=== PATIENT | male | born 1950 | race African-American/Black ===

== ENCOUNTER 2016-10-22 11:11 | Observation (INO) | payer OTHER ==
[~2016-10-22] VITALS: Ht 167.6 cm; Wt 108.9 kg
[2016-10-22 11:46] LABS: Basophils # (auto) 0 uL; Basophils % (auto) 0.3 % (0.0-2.0); CONDITION Y; Eosinophils # (auto) 0 uL; Eosinophils % (auto) 0.2 % (0.0-7.0); Hematocrit 30.3 % (41.0-53.0); Hemoglobin 10.3 g/dL (13.5-17.5); Lymphocytes # (auto) 1.2 uL; Lymphocytes % (auto) 11.4 % (10.0-50.0); Mean Corpuscular Hemoglobin 27.5 pg (28.0-32.0); Mean Corpuscular Hgb Conc. 33.9 g/dL (32.0-36.0); Mean Corpuscular Volume 81.3 fL (80.0-100.0); Mean Platelet Volume 8.1 fL (7.4-10.4); Monocytes # (auto) 0.9 uL; Monocytes % (auto) 8.9 % (0.0-12.0); Neutrophils # (auto) 8.2 uL; Neutrophils % (auto) 79.2 % (37.0-80.0); Platelet Count (auto) 353 10^3/uL (140-450); White Blood Cell 10.4 10^3/uL (4.4-10.8)
[2016-10-22 12:03] LABS: Chloride 108 mmol/L (98-107); INR 1.11 (0.9-1.15); Partial Thromboplastin Time 31.5 sec (22.64-33.71); Potassium 3.4 mmol/L (3.5-5.1); Prothrombin Time 12.1 sec (9.37-12.3); Sodium 140 mmol/L (136-145)
[2016-10-22 12:08] LABS: Albumin 2.7 g/dL (3.4-5.0); Anion Gap 14 (5-15); Aspartate Aminotransferase 15 U/L (15-37); BUN/Creatinine Ratio 9.9; Blood Urea Nitrogen 13 mg/dL (7-18); Calcium 8.1 mg/dL (8.5-10.1); Carbon Dioxide 18 mmol/L (21-32); GFR African American 71 mL/min; GFR Non-African American 58 mL/min; Glucose 152 mg/dL (74-106); Magnesium 1.8 mg/dL (1.6-2.6)
[2016-10-22 12:13] LABS: Alkaline Phosphatase 65 U/L (45-117); Bilirubin, Total 0.5 mg/dL (0.2-1.0); Total Protein 7.3 g/dL (6.4-8.2)
[2016-10-22 12:16] LABS: B-Type Natriuretic Peptide 152 pg/mL (0-100)
[2016-10-22] MEDS ORDERED: ONDANSETRON HCL 4 MG/2 ML VIAL IV ONE (12:30)
[2016-10-22] MEDS ORDERED: MORPHINE SULF INJ 2 MG/ML SYRINGE 1ML IV ONE (12:30)
[2016-10-22] MEDS ORDERED: cloNIDine HCL 0.1 MG TAB PO ONE (14:15)
[2016-10-22 17:51] VITALS: BP 140/86
== END 2016-10-22 19:22 | disposition home or self-care (01) | DRG 556 ==
LOC: ER 11:16 → OVERFLOW 11:36 → ER 19:22
PROVIDERS: ADMIT Family Medicine; ATTEND Family Medicine
DX: M79.604 Pain in right leg (principal); I11.0 Hypertensive heart disease with heart failure; I50.42 Chronic combined systolic (congestive) and diastolic (congestive) heart failure; R06.02 Shortness of breath; Z83.3 Family history of diabetes mellitus; Z82.49 Family history of ischemic heart disease and other diseases of the circulatory system
CPT/HCPCS: 36415; 71010; 73590; 80053; 83735; 83880; 84443; 84484; 85025; 85610; 85730; 93005; 93971; 96374; 96375; 99285; G0378; J2270; J2405

== ENCOUNTER 2024-01-26 18:01 | Emergency (ER) | payer OTHER ==
[~2024-01-26] VITALS: Ht 167.6 cm; Wt 72.0 kg
--- NOTE | 2024-01-26 18:24 | ED.PDOC ---
HPI (NEURO) HPI Comments 73 y.o male with PMH of HTN, presents to the ED for a chief complaint of dizziness that started earlier today. Patient reports he was sitting when dizziness suddenly presented, lasted for a couple of minutes, subsided and felt much better but spontaneously had another dizzy spell that was worse than the first episode. Patient reports he went to take his blood pressure medication which seemed to help decrease the dizziness. Patient was brought in to the ED by friend via wheelchair. Patient denies any headaches, nausea, vomiting, diarrhea, chest pain, SOB, fever, chills, chest pain. Upon ED arrival, patient's blood pressure read 155/106. Patient states he is compliant with medication. Chief Complaint: Dizziness Time Seen by MD: 18:17 Primary Care Provider: SELAM Davenport Notes: Nurses Notes, Medications, Allergies Information Source: Patient Mode of Arrival: Wheelchair Severity: Moderate Dizziness/Weakness Severity: Unable to do activities Timing: Hours Duration: Since onset Onset: At rest Circumstances: Spontaneous History of: Hypertension Modifying factors: Nothing Associated Signs and Symptoms: None Past Medical History PAST MEDICAL HISTORY: HTN Surgical History: Denies all surgeries Family History Family History: No family hx of DM, No family hx of HTN Social History Smoker: Non-Smoker Alcohol: Rarely Drugs: Denies Drug Use Lives In: Home Constitutional: denies: chills, diaphoresis, fatigue, fever, malaise, sweats, weakness, others EENTM: denies: blurred vision, double vision, ear bleeding, ear discharge, ear drainage, ear pain, ear ringing, eye pain, eye redness, hearing loss, mouth pain, mouth swelling, nasal discharge, nose bleeding, nose congestion, nose pain, photophobia, tearing, throat pain, throat swelling, voice changes, others Respiratory: denies: cough, hemoptysis, orthopnea, SOB at rest, shortness of breath, SOB with excertion, stridor, wheezing, others Cardiovascular: reports: dizzy spells; denies: chest pain, diaphoresis, Dyspnea on exertion, edema, irregular heart beat, left arm pain, lightheadedness, palpitations, PND, syncope, others Gastrointestinal: denies: abdomen distended, abdominal pain, blood streaked bowels, constipated, diarrhea, dysphagia, difficulty swallowing, hematemesis, melena, nausea, poor appetite, poor fluid intake, rectal bleeding, rectal pain, vomiting, others Genitourinary: denies: burning, dysuria, flank pain, frequency, hematuria, incontinence, penile discharge, penile sore, pain, testicle pain, testicle swelling, urgency, others Neurological: reports: dizziness; denies: fainting, headache, left sided numbness, left sided weakness, numbness, paresthesia, pre-existing deficit, right sided numbness, right sided weakness, seizure, speech problems, tingling, tremors, weakness, others Musculoskeletal: denies: back pain, gout, joint pain, joint swelling, muscle pain, muscle stiffness, neck pain, others Integumetry: denies: bruises, change in color, change in hair/nails, dryness, laceration, lesions, lumps, rash, wounds, others Allergic/Immunocompromised: denies: Difficulty Healing, Frequent Infections, Hives, Itching, others Hematologic/Lymphatic: denies: anemia, blood clots, easy bleeding, easy bruising, swollen glands, others Endocrine: denies: excessive hunger, excessive sweating, excessive thirst, excessive urination, flushing, intolerance to cold, intolerance to heat, unexplained weight gain, unexplained weight loss, others Psychiatric: denies: anxiety, bipolar disorder, depression, hopeless, panic disorder, schizophrenia, sleepless, suicidal, others All Other Systems: Reviewed and Negative Physical Exam General Appearance: No Apparent Distress HEENT: Normal ENT Inspection, Pharynx Normal, TMs Normal Neck: Full Range of Motion, Non-Tender, Normal, Normal Inspection Respiratory: Chest Non-Tender, Lungs Clear, No Accessory Muscle Use, No Respiratory Distress, Normal Breath Sounds Cardiovascular: No Edema, No JVD, No Murmur, No Gallop, Normal Peripheral Pulses, Regular Rate/Rhythm Breast Exam: Deferred Gastrointestinal: No Organomegaly, Non Tender, No Pulsatile Mass, Normal Bowel Sounds, Soft Genitalia: Deferred Pelvic: Deferred Rectal: Deferred Extremities: No calf tenderness, Normal capillary refill, Normal inspection, Normal range of motion, Non-tender, No pedal edema Musculoskeletal : Apperance: Normal Neurologic: Alert, fender finisher II-XII nml as Tested, No Motor Deficits, Normal Affect, Normal Mood, No Sensory Deficits Cerebellar Function: Normal Reflexes: Normal Skin: Dry, Normal Color, Warm Lymphatic: No Adenopathy Was a procedure done? Was a procedure done?: No Differential Diagnosis (SZ) Seizure: N/A General Weakness: Dehydration, Electrolyte imbalance, Vertigo: central, Vertigo: peripheral X-Ray, Labs, Meds, VS Vital Signs Date Time Temp Pulse Resp B/P (MAP) Pulse Ox O2 Delivery O2 Flow Rate FiO2 01/26/24 18:21 84 01/26/24 18:13 98.0 72 18 155/106 (122) 97 Lab Test 01/26/24 18:40 01/26/24 18:10 Range/Units White Blood Count 3.6 L 4.4-10.8 10^3/uL Red Blood Count 3.30 L 4.5-5.90 10^6/uL Hemoglobin 9.4 L 13.5-17.5 g/dL Hematocrit 27.8 L 41.0-53.0 % Mean Corpuscular Volume 84.4 80.0-100.0 fL Mean Corpuscular Hemoglobin 28.4 28.0-32.0 pg Mean Corpuscular Hemoglobin Concent 33.6 32.0-36.0 g/dL Red Cell Distribution Width 15.7 H 11.8-14.3 % Platelet Count 305 140-450 10^3/uL Mean Platelet Volume 7.1 6.9-10.8 fL Neutrophils (%) (Auto) 57.2 37.0-80.0 % Lymphocytes (%) (Auto) 30.2 10.0-50.0 % Monocytes (%) (Auto) 9.4 0.0-12.0 % Eosinophils (%) (Auto) 2.8 0.0-7.0 % Basophils (%) (Auto) 0.4 0.0-2.0 % Neutrophils # (Auto) 2.1 1.6-8.6 10 ^3/uL Lymphocytes # (Auto) 1.1 0.4-5.4 10 ^3/uL Monocytes # (Auto) 0.3 0-1.3 10 ^3/uL Eosinophils # (Auto) 0.1 0-0.8 10 ^3/uL Basophils # (Auto) 0 0-0.2 10 ^3/uL Nucleated Red Blood Cells 0.3 % Sodium Level 142 136-145 mmol/L Potassium Level 4.7 3.5-5.1 mmol/L Chloride Level 109 H 98-107 mmol/L Carbon Dioxide Level 26 20-31 mmol/L Anion Gap 7 5-15 Blood Urea Nitrogen 23 9-23 mg/dL Creatinine 1.47 H 0.700-1.30 mg/dL Glomerular Filtration Rate Calc 50 >90 mL/min BUN/Creatinine Ratio 15.6 10.0-20.0 Serum Glucose 85 74-106 mg/dL Calcium Level 9.3 8.7-10.4 mg/dL Troponin I High Sensitivity 9 </=54 ng/L POC Glucose 77 70-106 mg/dl CT scan of the head is negative The CBC shows anemia with a hemoglobin of 9.4 and hematocrit 27.8 The chemistry panel shows a BUN of 23 and a creatinine of 1.47 At this time, an IV Hep-Lock has been established The patient's blood pressure was elevated and was given clonidine The patient's blood pressure is now 138/58 He states that he feels much better at this time The patient will follow up with the primary care doctor The patient will return to the emergency department's the condition worsens. Images Reviewed?: Images reviewed and evaluated by me Time of 1ST Reevaluation: 18:20 Reevaluation 1ST: Unchanged Patient Education/Counseling: Diagnosis, Treatment, Prognosis, Need For Follow Up Family Education/Counseling: No Family Present Departure 1 Departure Time of Disposition: 20:33 Impression: Primary Impression: Hypertensive urgency Disposition: 01 HOME / SELF CARE / HOMELESS Condition: Fair Discharged With: Self Critical Care Note Critical Care Time?: No Stability Stability form required: No I personally scribed for VENITA FELIX MD ([facility]) on 01/26/24 at 18:24. Electronically submitted by Gege Elizabeth ([employer]). I personally scribed for VENITA FELIX MD ([facility]) on 01/26/24 at 18:25. Electronically submitted by Gege Elizabeth ([facility] VENITA FELIX MD Jan 26, 2024 18:24
[2024-01-26 19:01] LABS: Chloride 109 mmol/L (98-107); Potassium 4.7 mmol/L (3.5-5.1); Sodium 142 mmol/L (136-145)
[2024-01-26 19:02] LABS: Anion Gap 7 (5-15); Calcium 9.3 mg/dL (8.7-10.4); Carbon Dioxide 26 mmol/L (20-31)
[2024-01-26 19:03] LABS: Basophils # (auto) 0 10 ^3/uL (0-0.2); Basophils % (auto) 0.4 % (0.0-2.0); Eosinophils # (auto) 0.1 10 ^3/uL (0-0.8); Eosinophils % (auto) 2.8 % (0.0-7.0); Hematocrit 27.8 % (41.0-53.0); Hemoglobin 9.4 g/dL (13.5-17.5); Lymphocytes # (auto) 1.1 10 ^3/uL (0.4-5.4); Lymphocytes % (auto) 30.2 % (10.0-50.0); Mean Corpuscular Hemoglobin 28.4 pg (28.0-32.0); Mean Corpuscular Hgb Conc. 33.6 g/dL (32.0-36.0); Mean Corpuscular Volume 84.4 fL (80.0-100.0); Monocytes # (auto) 0.3 10 ^3/uL (0-1.3); Monocytes % (auto) 9.4 % (0.0-12.0); Neutrophils # (auto) 2.1 10 ^3/uL (1.6-8.6); Neutrophils % (auto) 57.2 % (37.0-80.0); Nucleated Red Blood Cells % 0.3 %; Platelet Count (auto) 305 10^3/uL (140-450); Red Cell Distribution Width 15.7 % (11.8-14.3); White Blood Cell 3.6 10^3/uL (4.4-10.8)
[2024-01-26 19:07] LABS: BUN/Creatinine Ratio 15.6 (10.0-20.0); Blood Urea Nitrogen 23 mg/dL (9-23); Glucose 85 mg/dL (74-106)
--- NOTE | 2024-01-26 19:34 | DVH ---
Procedure: CT HEAD WITHOUT CONTRAST Study Date and Requested Time: 01/26/2024 07:04 PM History: dizziness Comparison: None Dose: CTDI: 50.34 mGy DLP: 807.18 mGycm Technique: Multiplanar images obtained through the brain without intravenous contrast. Findings: Normal brain volume and formation. Mild chronic small vessel ischemic changes. Nonspecific minimal bi lateral basal ganglia and left cerebellar calcification. No hemorrhages, masses, mass effect, midline shift, herniation or cytotoxic edema following a large v ascular territory. No intra-axial or extra-axial fluid collections. No evidence of hydrocephalus. The basal cisterns are patent. The pituitary gland, sella and parasellar regions are unremarkable. The cerebellar tonsils are in nor mal position. The cerebellum is unremarkable. The orbits and globes are unremarkable. Periosteal thickening of the ethmoid air cells. Otherwise, t he paranasal sinuses and mastoids are clear. There are no worrisome calvarial lesions. There is a sug gested skin tag over the left lateral orbital soft tissue. Impression: No evidence of acute intracranial abnormalities.
[2024-01-26 21:00] VITALS: PULSE 72; RESP 72; TEMP 98.2; O2SAT 100
[2024-01-26] MEDS: cloNIDine HCL 0.1 MG TAB PO ONE (21:06)
[2024-01-26 21:23] VITALS: BP 144/75; PULSE 71; RESP 16
--- NOTE | 2024-01-27 07:02 | ECG ---
[facility] Test Date: 2024-01-26 Test Time: 18:15:00 Pat Name: ESTEBAN GRAVES Department: ER Room: Gender: M Manager Of Drilling: MICHAEL : 1950 Requested By: VENITA FELIX Order Number: [id number] Reading MD: Measurements Intervals [place] Rate: 84 P: 57 [place]: 183 QRS: 31 QRSD: 136 T: 15 QT: 363 QTc: 430 Interpretive Statements Sinus rhythm Right bundle branch block ST elevation, consider lateral injury Please click the below link to view image of tracing.
== END 2024-01-26 21:32 | disposition home or self-care (01) ==
LOC: ER 18:01
DX: I16.0 Hypertensive urgency (principal); I10 Essential (primary) hypertension; R42 Dizziness and giddiness
CPT/HCPCS: 36415; 70450; 80048; 82962; 84484; 85025; 93005